=== PATIENT | female | born 1995 | race Caucasian/White ===

== ENCOUNTER 2020-06-13 09:00 | Emergency (ER) | payer SELFPAY ==
[~2020-06-13] VITALS: Ht 165.1 cm; Wt 64.4 kg
--- NOTE | 2020-06-13 09:07 | NUR ---
Patient discharged to home in stable condition. Written and verbal after care instructions given. Patient verbalizes understanding of instructions. Stressed follow up or return to ER for worsening s/s.
== END 2020-06-13 09:11 | disposition home or self-care (01) ==
LOC: ER 09:00
DX: S70.312A Abrasion, left thigh, initial encounter (principal); W22.8XXA Striking against or struck by other objects, initial encounter; Y93.02 Activity, running; Y92.838 Other recreation area as the place of occurrence of the external cause
CPT/HCPCS: A4663